=== PATIENT | female | born 1995 | race Two or more races ===

== ENCOUNTER 2019-05-02 23:44 | Emergency (ER) | payer SELFPAY ==
[~2019-05-02] VITALS: Ht 162.6 cm; Wt 81.6 kg
[2019-05-03 00:11] LABS: BILIRUBIN,URINE NEGATIVE (NEG); CLARITY,URINE CLOUDY; COLOR,URINE YELLOW; NITRITE,URINE NEGATIVE (NEG); PROTEIN,URINE NEGATIVE (NEG-TRACE); UROBILINOGEN,URINE 0.2 mg/dL (0.2 mg/dL)
[2019-05-03] MEDS ORDERED: mirena (00:14)
[2019-05-03 00:19] LABS: BACTERIA,URINE FEW /HPF (0-FEW); SQUAMOUS EPITHELIAL CELL,UR FEW /LPF
[2019-05-03] MEDS ORDERED: ONDANSETRON PF 4 MG/2 ML VIAL. IV ONE (00:30)
[2019-05-03] MEDS ORDERED: MECLIZINE HCL 12.5 MG TABLET. PO ONE (00:30)
[2019-05-03] MEDS ORDERED: IV NORMAL SALINE 1000ML BAG 1,000 ML IV ONE (00:30)
[2019-05-03] MEDS ORDERED: MECL25TA3 PO (00:39)
--- NOTE | 2019-05-03 00:39 | PHYS DOC ---
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 Patient states the dizziness was worse when she was walking, she states she felt she her head was spinning. Denies any nausea, vomiting. Denies any cough or congestion. She states she had a similar episode 2 weeks ago. Denies any chance she is , she states she has a Mirena. Review of Systems Review of Systems Constitutional: Denies fever or chills [] Eyes: Denies change in visual acuity, redness, or eye pain [] HENT: Denies nasal congestion or sore throat [] Respiratory: Denies cough or shortness of breath [] Cardiovascular: No additional information not addressed in HPI [] GI: Denies abdominal pain, nausea, vomiting, bloody stools or diarrhea [] : Denies dysuria or hematuria [] Musculoskeletal: Denies back pain or joint pain [] Integument: Denies rash or skin lesions [] Neurologic: Reports dizziness. Denies headache, focal weakness or sensory changes [] All other systems were reviewed and found to be within normal limits, except as documented in this note. Current Medications Current Medications Current Medications Medications (Trade) Dose Ordered Sig/[facility] Start Time Stop Time Status Last Admin Dose Admin Meclizine HCl (Antivert) 25 mg 1X ONCE 05/03/19 00:30 05/03/19 00:31 DC 05/03/19 00:33 25 MG Ondansetron HCl (Zofran) 4 mg 1X ONCE 05/03/19 00:30 05/03/19 00:31 DC 05/03/19 00:33 4 MG Sodium Chloride 1,000 ml @ 1,000 mls/hr 1X ONCE 05/03/19 00:30 05/03/19 01:29 05/03/19 00:33 1,000 MLS/HR Allergies Allergies Allergies Coded Allergies Type Severity Reaction Last Updated Verified No Known Drug Allergies 05/03/19 No Physical Exam Physical Exam Constitutional: Well developed, well nourished, no acute distress, non-toxic appearance. [] HENT: Normocephalic, atraumatic, bilateral external ears normal, oropharynx moist, no oral exudates, nose normal. [] Eyes: PERRLA, EOMI, conjunctiva normal, no discharge. [] Neck: Normal range of motion, no tenderness, supple, no stridor. [] Cardiovascular:Heart rate regular rhythm, no murmur [] Lungs & Thorax: Bilateral breath sounds clear to auscultation [] Abdomen: Bowel sounds normal, soft, no tenderness, no masses, no pulsatile masses. [] Skin: Warm, dry, no erythema, no rash. [] Back: No tenderness, no CVA tenderness. [] Extremities: No tenderness, no cyanosis, no clubbing, ROM intact, no edema. [] Neurologic: Alert and oriented X 3, normal motor function, normal sensory function, no focal deficits noted. Cranial nerves II through XII intact Psychologic: Affect normal, judgement normal, mood normal. [] Current Patient Data Vital Signs Vital Signs Date Time Temp Pulse Resp B/P (MAP) Pulse Ox O2 Delivery O2 Flow Rate FiO2 05/02/19 23:56 98.1 86 18 124/75 (91) 99 Room Air 98.1 Lab Values Laboratory Tests Test 05/03/19 00:01 05/03/19 00:25 Urine Collection Type Unknown Urine Color Yellow Urine Clarity Cloudy Urine pH 6.0 Urine Specific [place] 1.025 Urine Protein Negative mg/dL (NEG-TRACE) Urine Glucose (UA) Negative mg/dL (NEG) Urine Ketones (Stick) Negative mg/dL (NEG) Urine Blood Negative (NEG) Urine Nitrite Negative (NEG) Urine Bilirubin Negative (NEG) Urine Urobilinogen Dipstick 0.2 mg/dL (0.2 mg/dL) Urine Leukocyte Esterase Moderate (NEG) Urine RBC 1-2 /HPF (0-2) Urine WBC 11-20 /HPF (0-4) Urine Squamous Epithelial Cells Few /LPF Urine Bacteria Few /HPF (0-FEW) White Blood Count 9.9 x10^3/uL (4.0-11.0) Red Blood Count 4.26 x10^6/uL (3.50-5.40) Hemoglobin 11.9 g/dL (12.0-15.5) L Hematocrit 35.4 % (36.0-47.0) L Mean Corpuscular Volume 83 fL (79-100) Mean Corpuscular Hemoglobin 28 pg (25-35) Mean Corpuscular Hemoglobin Concent 34 g/dL (31-37) Red Cell Distribution Width 13.3 % (11.5-14.5) Platelet Count 302 x10^3/uL (140-400) Neutrophils (%) (Auto) 57 % (31-73) Lymphocytes (%) (Auto) 33 % (24-48) Monocytes (%) (Auto) 9 % (0-9) Eosinophils (%) (Auto) 1 % (0-3) Basophils (%) (Auto) 1 % (0-3) Neutrophils # (Auto) 5.6 x10^3/uL (1.8-7.7) Lymphocytes # (Auto) 3.3 x10^3/uL (1.0-4.8) Monocytes # (Auto) 0.8 x10^3/uL (0.0-1.1) Eosinophils # (Auto) 0.1 x10^3/uL (0.0-0.7) Basophils # (Auto) 0.0 x10^3/uL (0.0-0.2) Laboratory Tests 05/03/19 00:25 EKG EKG [] Radiology/Procedures Radiology/Procedures [] Course & Med Decision Making Course & Med Decision Making Pertinent Labs and Imaging studies reviewed. (See chart for details) This is a 24-year-old female patient who presents to the ED today with dizziness that occurred this evening after she finished working. Has previous history of dizziness 2 weeks ago. Her neurological exam is intact. Symptoms are more consistent with vertigo. Urine positive for UTI. Will be given IV fluids, Rocephin and meclizine. Discharged on meclizine, cephalexin and instructed to change positions slowly, push fluids. Follow-up with PCP in 1-2 weeks. We also provided an neurologist for follow-up. Dragon Disclaimer Dragon Disclaimer This electronic medical record was generated, in whole or in part, using a voice recognition dictation system. Departure Departure Impression: Primary Impression: Vertigo Additional Impression: Urinary tract infection Disposition: 01 HOME, SELF-CARE Condition: STABLE Referrals: NO PCP (PCP) Patient Instructions: Urinary Tract Infection, Vertigo, [id number] Additional Instructions: You were evaluated in the emergency room for dizziness you also have urinary tract infection. We wrote you medications, take them as ordered. Change positions slowly. Follow-up with your own doctor in the course of this week or next week please complete your antibiotics. Scripts Meclizine Hcl (MECLIZINE HCL) 25 Mg Tablet 1 TAB PO TID, #30 TAB Prov: SONYA LEE APRN 05/03/19 Problem Qualifiers Additional Impression: Urinary tract infection Urinary tract infection type: site unspecified Hematuria presence: without hematuria Qualified Codes: N39.0 - Urinary tract infection, site not specified SONYA LEE APRN May 03, 2019 00:39
[2019-05-03 00:43] LABS: BASO % 1 % (0-3); EOS # 0.1 x10^3/uL (0.0-0.7); EOS % 1 % (0-3); HEMATOCRIT 35.4 % (36.0-47.0); HEMOGLOBIN 11.9 g/dL (12.0-15.5); LYMPH # 3.3 x10^3/uL (1.0-4.8); LYMPH % 33 % (24-48); MEAN CORPUSCULAR HEMOGLOBIN 28 pg (25-35); MEAN CORPUSCULAR HGB CONC 34 g/dL (31-37); MEAN CORPUSCULAR VOLUME 83 fL (79-100); MONO # 0.8 x10^3/uL (0.0-1.1); MONO % 9 % (0-9); NEUT # 5.6 x10^3/uL (1.8-7.7); NEUT % 57 % (31-73); PLATELET COUNT 302 x10^3/uL (140-400); RED BLOOD COUNT 4.26 x10^6/uL (3.50-5.40); RED CELL DISTRIBUTION WIDTH 13.3 % (11.5-14.5); WHITE BLOOD COUNT 9.9 x10^3/uL (4.0-11.0)
[2019-05-03 00:53] LABS: CREATININE 0.8 mg/dL (0.6-1.0); GFR 88.1; POTASSIUM 3.6 mmol/L (3.5-5.1)
[2019-05-03 00:59] LABS: ALBUMIN 3.6 g/dL (3.4-5.0); ALBUMIN/GLOBULIN RATIO 0.9 (1.0-1.7); TOTAL BILIRUBIN 0.2 mg/dL (0.2-1.0); TOTAL PROTEIN 7.4 g/dL (6.4-8.2)
[2019-05-03] MEDS ORDERED: SULF1TAB24 PO (01:51)
[2019-05-03 02:00] VITALS: BP 116/65
--- NOTE | 2019-05-03 05:39 | EKG ---
[facility] [address] [place] [address] Test Date: 2019-05-03 Test Time: 00:20:45 Pat Name: JUSTA MITCHELL Department: Room: Gender: F [employer] Operator: : 1995 Requested By: SONYA LEE Order Number: [id number] Reading MD: Measurements Intervals [place] Rate: 73 P: 45 CO: 160 QRS: 16 QRSD: 84 T: 30 QT: 382 QTc: 424 Interpretive Statements SINUS RHYTHM NORMAL ECG No previous ECG available for comparison
== END 2019-05-03 02:00 | disposition home or self-care (01) ==
LOC: ER 23:44
DX: R42 Dizziness and giddiness (principal); N39.0 Urinary tract infection, site not specified
CPT/HCPCS: 36415; 80053; 81001; 84484; 85025; 93005; 96361; 96374; 99285; J2405; J7030; J8597